=== PATIENT | female | born 1955 | race Caucasian/White ===

== ENCOUNTER 2023-05-14 19:09 | Emergency (ER) | payer MEDICARE, SELFPAY ==
[2023-05-14 19:28] VITALS: BP 130/79; PULSE 89; RESP 18; TEMP 36.4; O2SAT 97; BMI 38.3
[2023-05-14 19:42] LABS: Microscopic, Urine URINE MICROSCOPIC (MICROSCOPIC)
[2023-05-14 19:51] LABS: Appearance,Urine CLEAR (Clear); Blood, Urine 3+ (Negative); Color,Urine ORANGE (Yellow); Glucose,Urine (UA) Negative (Negative); Ketones,Urine Negative (Negative); Leukocyte Esterase,Urine 2+ (Negative); Nitrate,Urine Negative (Negative); Protein,Urine 2+ (Negative); Urobilinogen,Urine 0.2 EU/dl (0.2)
--- NOTE | 2023-05-14 19:51 | PC.NURSE ---
patient given pillow and blanket and repositioned for comfort, call light within reach
[2023-05-14 20:00] VITALS: BP 111/66; PULSE 81; O2SAT 96
[2023-05-14 20:00] LABS: Bilirubin,Urine 1+ (Negative)
[2023-05-14 20:07] LABS: Bacteria,Urine Trace /lpf; RBC,Urine TNTC #/hpf (0-3); WBC,Urine 50-100 #/hpf (0-3)
[2023-05-14 20:30] VITALS: BP 112/71; PULSE 82; O2SAT 98
[2023-05-14 21:59] VITALS: BP 138/78; PULSE 80; RESP 18; TEMP 36.4
--- NOTE | 2023-05-16 12:56 | ED_ITS ---
Discharge Plan Disposition Patient Disposition: Home, Self-Care Condition: Good Prescriptions Prescriptions: New nystatin-triamcinolone 100,000-0.1 unit/g-% cream 1 applic topical BID Qty: 60 0RF cefdinir 300 mg capsule 300 mg PO BID 10 Days Qty: 20 0RF No Action metformin 500 mg Tablet 500 mg PO BID methocarbamol 500 mg tablet 500 mg PO HS Patient Comments: TAKE 1/2 TO 1 (ONE-HALF TO ONE) TABLET BY MOUTH NIGHTLY NEEDED FOR MUSCLE SPASM tolterodine 4 mg capsule,extended release 24hr 4 mg PO DAILY alprazolam 0.5 mg tablet 0.5 mg PO DAILY Patient Comments: TAKE ONE TABLET ONE HOUR BEFORE PROCEDURE AND BRING OTHER TABLET TO PROCEDURE Referrals Follow up/Referrals: Awais Laureano [Primary Care Provider] - See instructions Activity Restrictions/Add. Instructions Additional Instructions/Restrictions: It appears that you have a urinary tract infection. Please follow-up with your primary care doctor. If the blood in your urine does not resolve you may need to see a urologist. Please use the cream as needed for your rash. Please follow-up with your [facility] [employer] doctor. Clinical Impressions Clinical Impression: Urinary tract infection, Vaginitis, Candidiasis of breast Instructions Patient Instructions: DI for Urinary Tract Infection (UTI) Discharge ED Provider: Dong Shepherd Adult HPI General Chief complaint: Urogenital-Female Stated complaint: blood in urine Time Seen by Provider: 05/14/23 19:56 Mode of Arrival: Ambulatory Limitations: No Limitations Description of Symptoms (Recalled from ER Triage Doc. by RN): 68 year old female with complaints of burining when she urinates and then at 4:30 this afternoon she noticed blood on her pads. States she has used 4 pads since then and there is no noitcable trauma from wiping. States she went through menopause years ago. History of Present Illness HPI narrative: Patient describes dysuria, frequency, gradual in onset starting approximately 1 week ago, with no associated fevers or chills or nausea or vomiting. She describes sensitivity in her labial area with urination, for which she has seen coding quality coordinator and been prescribed topical cream or ointment. She also describes rash below her bilateral breasts that is uncomfortable and has been refractory to [id number] medications. She denies any history of urolithiasis. She denies any abdominal pain, she denies any flank pain. She denies any blood thinner usage. Related Data Home Medications Medication Instructions Recorded Confirmed alprazolam 0.5 mg tablet 0.5 mg PO DAILY 05/14/23 05/14/23 metformin 500 mg tablet 500 mg PO BID 05/14/23 05/14/23 methocarbamol 500 mg tablet 500 mg PO HS 05/14/23 05/14/23 tolterodine 4 mg capsule,extended 4 mg PO DAILY 05/14/23 05/14/23 release 24 hr Previous Rx's Medication Instructions Recorded cefdinir 300 mg capsule 300 mg PO BID 10 days #20 caps 05/14/23 nystatin-triamcinolone 100,000 1 applic topical BID #60 grams 05/14/23 unit/g-0.1 % topical cream Allergies Allergy/AdvReac Type Severity Reaction Status Date / Time No Known Allergies Allergy Verified 05/14/23 19:36 [facility] Disclaimer: The information contained in this section may have been updated after the patient was seen, as this information can be updated by other users. Social History Smoking Status: Never smoker alcohol intake: former current occupational status: other Travel in the last 8 weeks: None ROS Obtained: Yes Systems reviewed as appropriate & no additional complaints except as documented As per HPI Physical Exam General General appearance: alert and in no apparent distress Head Head exam: atraumatic and normocephalic Eye Eye exam: Present normal appearance Neck Neck exam: Present normal inspection Chest Chest inspection: Present normal inspection and symmetric chest wall rise Respiratory Respiratory exam: Present normal lung sounds bilaterally; Absent respiratory distress Cardiovascular Cardiovascular exam: Present regular rate and normal rhythm Abdominal Exam Abdominal exam: Present soft and other (No CVA tenderness); Absent distention or tenderness External exam: Present erythema and other (Erythematous labia majora and minora consistent with atrophic vaginitis) Neurological Exam Neurological exam: Present alert and oriented X3 Psychiatric Psychiatric exam: Present normal affect and normal mood Skin Skin exam: Present warm, dry and other (Candidal rash in bilateral inframammary area) Medical Decision Making Medical Records Medical records reviewed: Yes I reviewed the patient's medical records. Gt Inquiry Pt receiving controlled substance: No Vital Signs: 05/14/23 19:28 05/14/23 20:00 05/14/23 20:30 Temperature 97.6 F Temperature Source Oral Pulse Rate 81 82 Pulse Rate [Left Radial] 89 Respiratory Rate 18 Blood Pressure 111/66 112/71 Blood Pressure [Right Arm] 130/79 Blood Pressure Mean [Right Arm] 96 02 Sat by Pulse Oximetry 97 96 98 Oxygen Delivery Method Room Air 05/14/23 21:59 Temperature 97.6 F Temperature Source Oral Pulse Rate 80 Pulse Rate [Left Radial] Respiratory Rate 18 Blood Pressure 138/78 Blood Pressure [Right Arm] Blood Pressure Mean [Right Arm] 02 Sat by Pulse Oximetry Oxygen Delivery Method Lab Data Lab Results 05/14/23 19:25: Urine Color [place], Urine Appearance Clear, Urine pH 6.0, Ur Specific [place] 1.020, Urine Protein 2+, Urine Glucose (UA) Negative, Urine Ketones Negative, Urine Blood 3+, Urine Nitrate Negative, Urine Bilirubin 1+ A, Urine Urobilinogen 0.2, Ur Leukocyte Esterase 2+ A, Urine RBC Tntc, Urine WBC 50-100, Ur Squamous Epith Cells 3-5, Urine Bacteria Trace Orders (Tests/Meds): ORDERS Category Date Time Status UA [Urinalysis and Microscopic] Stat Lab 05/14/23 19:25 Completed Urine Culture Stat Micro 05/14/23 19:25 Received Medical Decision Narrative: Patient with history and exam per above presenting for evaluation of dysuria, rash Diagnoses considered include candidal lesion, atrophic vaginitis, pyelonephritis, acute cystitis, urolithiasis, bladder cancer ED workup and treatment included: Urinalysis, urine culture Labs were independently interpreted by me, significant for pyuria, bacteriuria, hematuria, consistent with infectious etiology Symptoms at this time are thought to be most consistent with candidiasis in bilateral inframammary area, as well as cystitis. Patient was instructed to follow-up with primary care provider should hematuria persist. No concerning examination findings such as abdominal tenderness or CVA tenderness to suggest pyelonephritis or urolithiasis at this time. I discussed my clinical impression with patient and answered all questions. At this time, given reassuring workup and exam, I discussed that I have a low index of suspicion for any acute pathology necessitating inpatient management. Specific return precautions were given, with understanding and agreement. Patient will follow up with primary care provider as needed. Critical Care Critical Care Time Critical Care Time: No
--- NOTE | 2023-05-19 08:33 | PC.NURSE ---
URINE CULTURE DISCUSSED WITH DR HOUSE, PT DISCHARGED ON CEFDINIR. NO NEW ORDERS
== END 2023-05-14 22:09 | disposition home or self-care (01) ==
PROVIDERS: Emergency Provider Emergency Medicine; PCP Family Medicine
DX: N39.0 Urinary tract infection, site not specified (principal); B96.29 Other Escherichia coli [E. coli] as the cause of diseases classified elsewhere; N76.0 Acute vaginitis; B37.89 Other sites of candidiasis
CPT/HCPCS: 81001; 87086; 99283